=== PATIENT | female | born 1985 | race Caucasian/White ===

== ENCOUNTER 2018-06-02 12:00 | Emergency (ER) | payer BC ==
--- NOTE | 2018-06-02 15:55 | OBDCSUM ---
Datetime: 06/02/2018 14:12 Discharged to, Provider: Home Follow up at, Provider: Disch Instr Activity: Normal activity Disch Instr Diet: Regular Discharge Instructions, Provider: Routine instructions given Discharge Time: 06/02/2018 14:15 Follow up in weeks, Provider: as scheduled 06/07/18 Disch Referrals: None Contraception discussed, Prov: Yes Discharge Diagnosis Prov Other: false labor
--- NOTE | 2018-06-02 15:56 | OBHP ---
Datetime: 06/02/2018 13:00 IP Adm Impression: Term, intrauterine IP Admit Plan: Observation/Evaluation; Discharge home Admit Comment, IP Provider: HPI: Toshia is a 32 year old G1 at 38.2 who presents with complaints of c ontractions. Began at around 5 this am, became stronger and more frequent (Q5 min) about 1 hour befor e presenting to the hospital. No bloody show, no LOF, good movement. MITESH: 06/14/18 Problems Denies PMH Denies PSH Denies Medications PNV Allergies NKDA FH Not significant PHYSICAL EXAM Vitals reviewed exam records unavailable ASSESSMENT/PLAN: 32 year old G1 at 38.2 here for rule out labor. Her cervical exam indicates early latent labor, no reason for admission. Patient reports her pain level is tolerable. She prefers to s jose on [facility] and have a repeat exam in 1-2 hours. Reactive NST at this time. Addendum @ 14:30 - rechecked cervical exam, 2. Contractions are now Q6-7 minutes and less pa inful. Still in latent labor. The patient would prefer to go home at this time, return precautions gi rubi. Patient verbalized understanding. EFM remained reactive. Barbara Kaminski MD OB Fellow Addendum by Dr. Mahoney: I have evaluated the patient independently and agree with the above Extremities - PN: Normal Abdomen - PN: Normal Lungs - PN: Normal Heart - PN: Normal HEENT - PN: Normal General - PN: Normal Presentation-Admit: Vertex IP Fetus A Comments: Reactive NST FHR - Baseline A Provider: 140 Membranes, Provider: Intact Contraction Comments Provider: Q5 min Gestation - Est Wks by US: 38.2 EGA AdmitDate IP: 38.2 Vital Signs Provider: Reviewed; Within Normal Limits IP Chief Complaint: Uterine contractions NICHD Variability Prov Fetus A: Moderate 6-25bpm NICHD Accel Fetus A IP Provider: [id number] NICHD Decel Fetus A IP Provider: None Dilatation, Provider: 2 Effacement, Provider: 50 Station, Provider: -2 Genitourinary Exam: Normal
[2018-06-02 19:09] VITALS: BP 124/89; PULSE 83; RESP 18; TEMP 97.9; O2SAT 98
== END 2018-06-02 14:15 | disposition home or self-care (01) ==
LOC: H.EROB2 12:00
DX: O26.93 Pregnancy related conditions, unspecified, third trimester (principal); R10.2 Pelvic and perineal pain; Z3A.38 38 weeks gestation of pregnancy